=== PATIENT | female | born 1980 | race Caucasian/White ===

== ENCOUNTER 2018-11-07 10:04 | Emergency (ER) | payer MEDICAID ==
[2018-11-07] MEDS ORDERED: LORazepam 2 MG/ML INJ IVP ONE (11:00)
[2018-11-07 11:23] LABS: PLATELET COUNT 308 10^3/uL (150-400)
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
[2018-11-07 11:49] LABS: CREATINE KINASE 41 IU/L (0-156)
[2018-11-07 12:07] VITALS: BP 90/62
== END 2018-11-07 12:07 | disposition home or self-care (01) ==
DX: R25.1 Tremor, unspecified (principal); R11.0 Nausea